=== PATIENT | male | born 1950 | race Caucasian/White ===

== ENCOUNTER 2022-01-01 07:36 | Outpatient (CLI) | payer OTHER ==
[~2022-01-01 07:36] MED LIST: ALLOPURINOL100 MG; DIOVAN320 MG; FLECTOR1 EACH TD; NORFLEX100MG PO; NORVASC2.5 M1; VOLTAREN-XR100 MG PO
== END 2022-01-01 07:41 | disposition home or self-care (01) ==
LOC: SONOGRAMA 07:36
PROVIDERS: ATTEND Internal Medicine
DX: R10.13 Epigastric pain (principal); R11.0 Nausea

== ENCOUNTER → 2022-01-02 | Outpatient (CLI) | payer OTHER | END | disposition home or self-care (01) | LOC: NUCLEAR 07:00 | PROVIDERS: ATTEND Internal Medicine | DX: R10.13 Epigastric pain (principal); R11.0 Nausea | CPT/HCPCS: 78227; A9537; J2805 ==